=== PATIENT | female | born 2000 | race Caucasian/White ===

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

== ENCOUNTER 2022-06-23 13:18 | Inpatient (IN) | payer OTHER ==
[2022-06-23] MEDS ORDERED: Nubain 10 MG/ML IV PRN (13:46)
[2022-06-23] MEDS ORDERED: STADOL 2 MG IV PRN (13:46)
[2022-06-23] MEDS ORDERED: Zofran 4 MG/2 ML VIAL IV PRN (13:46)
[2022-06-23] MEDS ORDERED: XYLOCAINE 1% HCL 20 ML MDV IJ PRN (13:46)
[2022-06-23] MEDS ORDERED: PITOCIN 30 UNITS/ LR 500 ML 30 UNITS/500 ML PLAST..BAG IV SCH (14:00)
[2022-06-23] MEDS ORDERED: Lactated Ringers 1,000 ML IV SCH (14:00)
[2022-06-23 14:11] LABS: Absolute Neutrophil Ct (ANC) 5.23 x10^3/uL (1.4-6.9); Basophil (Absolute #) 0.04 x10^3/uL (0-0.4); Eosinophil % 0.6 % (0.00-5.0); Eosinophil (Absolute #) 0.05 x10^3/uL (0-0.5); Hematocrit 31.6 % (35-47); Lymphocyte (Absolute #) 1.57 x10^3/uL (1.0-4.6); Lymphocytes % 20.2 % (24.0-44.0); Mean Cell Volume 87.1 fL (78-100); Mean Corpuscular Hemoglobin 27.5 pg (26-32); Mean Corpuscular Hgb Concent. 31.6 g/dL (32-36); Mean Platelet Volume 11.3 fL (7.5-11.0); Monocyte (Absolute #) 0.87 x10^3/uL (0.0-1.3); Monocytes % 11.2 % (0.0-12.0); Neutrophil % 67.1 % (36.0-66.0); Platelet Count 190 x10^3/uL (150-450); Red Blood Count 3.63 x10^6/uL (4.1-5.4); Red Cell Distribution Width 13.5 % (11.5-14.0); White Blood Count 7.8 x10^3/uL (4.0-10.5)
[2022-06-23 14:25] LABS: Amphetamine,Urine NEGATIVE (NEGATIVE); Barbiturate,Urine NEGATIVE (NEGATIVE); Benzodiazepine,Urine NEGATIVE (NEGATIVE); Cocaine,Urine NEGATIVE (NEGATIVE); Methadone,Urine NEGATIVE (NEGATIVE); Opiate,Urine NEGATIVE (NEGATIVE); PCP,Urine NEGATIVE (NEGATIVE); THC,Urine POSITIVE (NEGATIVE)
[2022-06-23] MEDS ORDERED: Lactated Ringers 1,000 ML IV ONE (14:32)
[2022-06-23] MEDS ORDERED: Ephedrine Sulfate 50 MG/ML IV PRN (14:32)
[2022-06-23] MEDS ORDERED: FENTANYL 2 MCG-BUPIV 0.125%-NS 250 ML Epidur 250 ML EPIDURAL SCH (14:45)
[2022-06-23 14:50] LABS: ABO TYPING O; Antibody Screen NEGATIVE (NEGATIVE); RH TYPING POSITIVE
[2022-06-23 15:42] LABS: Appearance Cloudy (Clear); Bacteria Rare /HPF (None Seen); Bilirubin Negative (Negative); Blood Negative (Negative); Epithelial Cells Many /HPF (None Seen); Glucose, Urine Negative (Negative); Hyaline Casts 0-2 /LPF (0-2); Ketones Negative (Negative); Leukocyte Esterase Large (Negative); Nitrite Negative (Negative); Protein,Urine Dip Trace (Negative); RBC 0-2 /HPF (0-5); Specific Gravity 1.015 (1.005-1.030)
[2022-06-23 15:47] LABS: ADD URINE CULTURE? YES (NO)
[2022-06-23] MEDS ORDERED: Dulcolax 10 MG SUPP PR PRN (18:26)
[2022-06-23] MEDS ORDERED: LANSINOH 40 GM TOP PRN (18:26)
[2022-06-23] MEDS ORDERED: Anucort-HC SUPPOSITORY PR PRN (18:26)
[2022-06-23] MEDS ORDERED: Dermoplast Spray TP PRN (18:26)
[2022-06-23] MEDS ORDERED: TUCKS TP PRN (18:26)
[2022-06-23] MEDS ORDERED: CORTISONE 1% CREAM TP PRN (18:26)
[2022-06-23] MEDS ORDERED: Ambien 10 MG PO PRN (18:26)
[2022-06-23] MEDS ORDERED: Mylicon 80MG PO PRN (18:26)
[2022-06-23] MEDS: Docusate Sodium 100 MG PO SCH (20:57)
[2022-06-24] MEDS: TYLENOL EXTRA STRENGTH 500 MG PO PRN ×5 (02:55→22:51)
[2022-06-24 05:51] LABS: Absolute Neutrophil Ct (ANC) 7.01 x10^3/uL (1.4-6.9); Basophil (Absolute #) 0.06 x10^3/uL (0-0.4); Eosinophil % 1.2 % (0.00-5.0); Eosinophil (Absolute #) 0.14 x10^3/uL (0-0.5); Hematocrit 30.7 % (35-47); Hemoglobin 9.8 g/dL (12.0-16.0); Lymphocyte (Absolute #) 2.87 x10^3/uL (1.0-4.6); Lymphocytes % 25.3 % (24.0-44.0); Mean Cell Volume 86.7 fL (78-100); Mean Corpuscular Hemoglobin 27.7 pg (26-32); Mean Corpuscular Hgb Concent. 31.9 g/dL (32-36); Monocyte (Absolute #) 1.23 x10^3/uL (0.0-1.3); Monocytes % 10.9 % (0.0-12.0); Neutrophil % 61.9 % (36.0-66.0); Platelet Count 201 x10^3/uL (150-450); Red Blood Count 3.54 x10^6/uL (4.1-5.4); Red Cell Distribution Width 13.8 % (11.5-14.0); White Blood Count 11.3 x10^3/uL (4.0-10.5)
[2022-06-24] MEDS ORDERED: Adacel Vial IM ONE (09:00)
--- NOTE | 2022-06-24 09:14 | PCM.NOTE ---
Date and Time: 06/24/22911 Subjective Assessment: ppd 1 sp pt resting in bed and doing well ambulating and tolerating diet. vss afebrile abd; soft uterus; firm lochia; mild hgb; 9.8 a/p sp ppd 1 stable anticipate discharge home tomorrow OBJECTIVE DATA Vital Signs: Vital Signs - 24 hr Temp Pulse Resp BP BP Pulse Ox 06/24/22 03:34 98.5 F 55 L 18 98/54 06/24/22 00:00 98.7 F 66 18 100/57 06/23/22 20:00 97.9 F 72 20 100/59 100 06/23/22 19:30 111 H 18 122/76 100 06/23/22 19:00 60 16 102/57 100 06/23/22 18:30 57 L 16 106/65 100 06/23/22 18:20 74 18 107/64 100 06/23/22 17:58 98 F 76 18 100/59 100 06/23/22 17:30 66 20 99/61 100 06/23/22 17:00 66 20 101/54 100 06/23/22 16:00 98 F 71 29 H 102/71 06/23/22 15:01 98 F 80 29 H 109/74 06/23/22 14:00 98 F 66 20 109/74 100 Pain Assessment - Last Documented Pain Intensity 5 Pain Scale Used 0-10 Pain Scale Intake and Output: Intake & Output 06/21/22 06/22/22 06/23/22 06/24/22 11:59 11:59 11:59 11:59 Intake Total 3000 Balance 3000 Weight 55.792 kg Lab Results: Lab Results-Last 24 Hours 06/23/22 06/23/22 06/23/22 Range/Units 12:30 13:46 14:03 WBC 7.8 (4.0-10.5) x10^3/uL RBC 3.63 L (4.1-5.4) x10^6/uL Hgb 10.0 L (12.0-16.0) g/dL Hct 31.6 L (35-47) % MCV 87.1 (78-100) fL MCH 27.5 (26-32) pg MCHC 31.6 L (32-36) g/dL RDW 13.5 (11.5-14.0) % Plt Count 190 (150-450) x10^3/uL MPV 11.3 H (7.5-11.0) fL Gran % 67.1 H (36.0-66.0) % Immature Gran % (Auto) 0.4 (0.00-0.4) % Nucleat RBC Rel Count 0.0 (0.00-0.1) % Eos # (Auto) 0.05 (0-0.5) x10^3/uL Immature Gran # (Auto) 0.03 (0.00-0.03) x10^3u/L Absolute Lymphs (auto) 1.57 (1.0-4.6) x10^3/uL Absolute Monos (auto) 0.87 (0.0-1.3) x10^3/uL Absolute Nucleated RBC 0.00 (0.00-0.01) x10^3u/L Lymphocytes % 20.2 L (24.0-44.0) % Monocytes % 11.2 (0.0-12.0) % Eosinophils % 0.6 (0.00-5.0) % Basophils % 0.5 (0.0-0.4) % Absolute Granulocytes 5.23 (1.4-6.9) x10^3/uL Basophils # 0.04 (0-0.4) x10^3/uL Urine Color Yellow (Yellow) Urine Appearance Cloudy A (Clear) Urine pH 8.0 (4.6-8.0) Ur Specific [place] 1.015 (1.005-1.030) Urine Protein Trace A (Negative) Urine Glucose (UA) Negative (Negative) mg/dL Urine Ketones Negative (Negative) Urine Blood Negative (Negative) Urine Nitrite Negative (Negative) Urine Bilirubin Negative (Negative) Urine Urobilinogen 1.0 A (0.2) mg/dL Ur Leukocyte Esterase Large A (Negative) U Hyaline Cast (Auto) 0-2 (0-2) /LPF Urine Microscopic RBC 0-2 (0-5) /HPF Urine Microscopic WBC 6-10 A (0-5) /HPF Ur Epithelial Cells Many A (None Seen) /HPF Urine Bacteria Rare A (None Seen) /HPF Urine Culture Reflexed YES (NO) Urine Opiates Level NEGATIVE (NEGATIVE) Ur Methadone NEGATIVE (NEGATIVE) Urine Barbiturates NEGATIVE (NEGATIVE) Ur Phencyclidine (PCP) NEGATIVE (NEGATIVE) Urine Amphetamine NEGATIVE (NEGATIVE) U Benzodiazepine Level NEGATIVE (NEGATIVE) Urine Cocaine NEGATIVE (NEGATIVE) Urine Marijuana (THC) POSITIVE (NEGATIVE) ABO Group Rh Factor Antibody Screen (NEGATIVE) 06/23/22 06/24/22 Range/Units 14:03 04:10 WBC 11.3 H (4.0-10.5) x10^3/uL RBC 3.54 L (4.1-5.4) x10^6/uL Hgb 9.8 L (12.0-16.0) g/dL Hct 30.7 L (35-47) % MCV 86.7 (78-100) fL MCH 27.7 (26-32) pg MCHC 31.9 L (32-36) g/dL RDW 13.8 (11.5-14.0) % Plt Count 201 (150-450) x10^3/uL MPV 12.0 H (7.5-11.0) fL Gran % 61.9 (36.0-66.0) % Immature Gran % (Auto) 0.2 (0.00-0.4) % Nucleat RBC Rel Count 0.0 (0.00-0.1) % Eos # (Auto) 0.14 (0-0.5) x10^3/uL Immature Gran # (Auto) 0.02 (0.00-0.03) x10^3u/L Absolute Lymphs (auto) 2.87 (1.0-4.6) x10^3/uL Absolute Monos (auto) 1.23 (0.0-1.3) x10^3/uL Absolute Nucleated RBC 0.00 (0.00-0.01) x10^3u/L Lymphocytes % 25.3 (24.0-44.0) % Monocytes % 10.9 (0.0-12.0) % Eosinophils % 1.2 (0.00-5.0) % Basophils % 0.5 (0.0-0.4) % Absolute Granulocytes 7.01 H (1.4-6.9) x10^3/uL Basophils # 0.06 (0-0.4) x10^3/uL Urine Color (Yellow) Urine Appearance (Clear) Urine pH (4.6-8.0) Ur Specific [place] (1.005-1.030) Urine Protein (Negative) Urine Glucose (UA) (Negative) mg/dL Urine Ketones (Negative) Urine Blood (Negative) Urine Nitrite (Negative) Urine Bilirubin (Negative) Urine Urobilinogen (0.2) mg/dL Ur Leukocyte Esterase (Negative) U Hyaline Cast (Auto) (0-2) /LPF Urine Microscopic RBC (0-5) /HPF Urine Microscopic WBC (0-5) /HPF Ur Epithelial Cells (None Seen) /HPF Urine Bacteria (None Seen) /HPF Urine Culture Reflexed (NO) Urine Opiates Level (NEGATIVE) Ur Methadone (NEGATIVE) Urine Barbiturates (NEGATIVE) Ur Phencyclidine (PCP) (NEGATIVE) Urine Amphetamine (NEGATIVE) U Benzodiazepine Level (NEGATIVE) Urine Cocaine (NEGATIVE) Urine Marijuana (THC) (NEGATIVE) ABO Group O Rh Factor POSITIVE Antibody Screen NEGATIVE (NEGATIVE) Assessment/Plan (1) Vaginal delivery Current Visit: No Status: Acute Code(s): O80 - ENCOUNTER FOR FULL-TERM UNCOMPLICATED DELIVERY
--- NOTE | 2022-06-24 09:17 | PCM.DS ---
Discharge Summary Date of Admission: 06/23/22 14:51 Admitting Physician: ELSIE JACKSON Consults: Consults on Case 06/23/22 14:33 Notify Anesthesia Provider PRN 06/24/22 01:00 Navigation ONCE Primary Care Provider: ELSIE JACKSON Allergies Allergies No Known Drug Allergies Allergy (Verified 12/19/20 18:43) Hospital Summary - Hospital Course Hospital Course: pt was admitted on june 23 for being in labor and was admitted when she was 4 cm dilated. pt progressed to delivery and delivered live baby girl without complication. during period did well able to ambulate and tolerate diet. had stable hgb at 9.8. pt at this time stable for discharge on jun 25 and was advised to fu with her provider in 4-6 wks. all questions answered to her satisfaction. - Vitals & Intake/Output Vital Signs: Vital Signs Temperature 98.5 F 06/24/22 03:34 Pulse Rate 55 L 06/24/22 03:34 Respiratory Rate 18 06/24/22 03:34 Blood Pressure 98/54 06/24/22 03:34 O2 Sat by Pulse Oximetry 100 06/23/22 20:00 Intake & Output: Intake & Output 06/21/22 06/22/22 06/23/22 06/24/22 11:59 11:59 11:59 11:59 Intake Total 3000 Balance 3000 Weight 55.792 kg - Lab Result Diagrams: 06/24/22 04:10 Lab Results-Last 24 Hrs: Lab Results-Last 24 Hours 06/23/22 06/23/22 06/23/22 Range/Units 12:30 13:46 14:03 WBC 7.8 (4.0-10.5) x10^3/uL RBC 3.63 L (4.1-5.4) x10^6/uL Hgb 10.0 L (12.0-16.0) g/dL Hct 31.6 L (35-47) % MCV 87.1 (78-100) fL MCH 27.5 (26-32) pg MCHC 31.6 L (32-36) g/dL RDW 13.5 (11.5-14.0) % Plt Count 190 (150-450) x10^3/uL MPV 11.3 H (7.5-11.0) fL Gran % 67.1 H (36.0-66.0) % Immature Gran % (Auto) 0.4 (0.00-0.4) % Nucleat RBC Rel Count 0.0 (0.00-0.1) % Eos # (Auto) 0.05 (0-0.5) x10^3/uL Immature Gran # (Auto) 0.03 (0.00-0.03) x10^3u/L Absolute Lymphs (auto) 1.57 (1.0-4.6) x10^3/uL Absolute Monos (auto) 0.87 (0.0-1.3) x10^3/uL Absolute Nucleated RBC 0.00 (0.00-0.01) x10^3u/L Lymphocytes % 20.2 L (24.0-44.0) % Monocytes % 11.2 (0.0-12.0) % Eosinophils % 0.6 (0.00-5.0) % Basophils % 0.5 (0.0-0.4) % Absolute Granulocytes 5.23 (1.4-6.9) x10^3/uL Basophils # 0.04 (0-0.4) x10^3/uL Urine Color Yellow (Yellow) Urine Appearance Cloudy A (Clear) Urine pH 8.0 (4.6-8.0) Ur Specific [place] 1.015 (1.005-1.030) Urine Protein Trace A (Negative) Urine Glucose (UA) Negative (Negative) mg/dL Urine Ketones Negative (Negative) Urine Blood Negative (Negative) Urine Nitrite Negative (Negative) Urine Bilirubin Negative (Negative) Urine Urobilinogen 1.0 A (0.2) mg/dL Ur Leukocyte Esterase Large A (Negative) U Hyaline Cast (Auto) 0-2 (0-2) /LPF Urine Microscopic RBC 0-2 (0-5) /HPF Urine Microscopic WBC 6-10 A (0-5) /HPF Ur Epithelial Cells Many A (None Seen) /HPF Urine Bacteria Rare A (None Seen) /HPF Urine Culture Reflexed YES (NO) Urine Opiates Level NEGATIVE (NEGATIVE) Ur Methadone NEGATIVE (NEGATIVE) Urine Barbiturates NEGATIVE (NEGATIVE) Ur Phencyclidine (PCP) NEGATIVE (NEGATIVE) Urine Amphetamine NEGATIVE (NEGATIVE) U Benzodiazepine Level NEGATIVE (NEGATIVE) Urine Cocaine NEGATIVE (NEGATIVE) Urine Marijuana (THC) POSITIVE (NEGATIVE) ABO Group Rh Factor Antibody Screen (NEGATIVE) 06/23/22 06/24/22 Range/Units 14:03 04:10 WBC 11.3 H (4.0-10.5) x10^3/uL RBC 3.54 L (4.1-5.4) x10^6/uL Hgb 9.8 L (12.0-16.0) g/dL Hct 30.7 L (35-47) % MCV 86.7 (78-100) fL MCH 27.7 (26-32) pg MCHC 31.9 L (32-36) g/dL RDW 13.8 (11.5-14.0) % Plt Count 201 (150-450) x10^3/uL MPV 12.0 H (7.5-11.0) fL Gran % 61.9 (36.0-66.0) % Immature Gran % (Auto) 0.2 (0.00-0.4) % Nucleat RBC Rel Count 0.0 (0.00-0.1) % Eos # (Auto) 0.14 (0-0.5) x10^3/uL Immature Gran # (Auto) 0.02 (0.00-0.03) x10^3u/L Absolute Lymphs (auto) 2.87 (1.0-4.6) x10^3/uL Absolute Monos (auto) 1.23 (0.0-1.3) x10^3/uL Absolute Nucleated RBC 0.00 (0.00-0.01) x10^3u/L Lymphocytes % 25.3 (24.0-44.0) % Monocytes % 10.9 (0.0-12.0) % Eosinophils % 1.2 (0.00-5.0) % Basophils % 0.5 (0.0-0.4) % Absolute Granulocytes 7.01 H (1.4-6.9) x10^3/uL Basophils # 0.06 (0-0.4) x10^3/uL Urine Color (Yellow) Urine Appearance (Clear) Urine pH (4.6-8.0) Ur Specific [place] (1.005-1.030) Urine Protein (Negative) Urine Glucose (UA) (Negative) mg/dL Urine Ketones (Negative) Urine Blood (Negative) Urine Nitrite (Negative) Urine Bilirubin (Negative) Urine Urobilinogen (0.2) mg/dL Ur Leukocyte Esterase (Negative) U Hyaline Cast (Auto) (0-2) /LPF Urine Microscopic RBC (0-5) /HPF Urine Microscopic WBC (0-5) /HPF Ur Epithelial Cells (None Seen) /HPF Urine Bacteria (None Seen) /HPF Urine Culture Reflexed (NO) Urine Opiates Level (NEGATIVE) Ur Methadone (NEGATIVE) Urine Barbiturates (NEGATIVE) Ur Phencyclidine (PCP) (NEGATIVE) Urine Amphetamine (NEGATIVE) U Benzodiazepine Level (NEGATIVE) Urine Cocaine (NEGATIVE) Urine Marijuana (THC) (NEGATIVE) ABO Group O Rh Factor POSITIVE Antibody Screen NEGATIVE (NEGATIVE) Final Diagnosis/Problem List - Final Discharge Diagnosis/Problem (1) Vaginal delivery Current Visit: No Status: Acute Code(s): O80 - ENCOUNTER FOR FULL-TERM UNCOMPLICATED DELIVERY - Discharge Disposition: Home, Self-Care Condition: Stable Prescriptions: No Action Ferrous Sulfate [Iron] 325 mg PO HS Follow up with: ELSIE JACKSON MD [Primary Care Provider] - Call for Appointment (should fu with provider in 4-6 wks for care )
[2022-06-24] MEDS: Docusate Sodium 100 MG PO SCH ×2 (09:33→22:19)
[2022-06-24] MEDS ORDERED: FERREX 150 PO SCH (10:00)
[2022-06-24 12:44] LABS: HBsAg Screen Negative (Negative)
[2022-06-25] MEDS: TYLENOL EXTRA STRENGTH 500 MG PO PRN ×3 (04:22→13:29)
[2022-06-25 11:08] VITALS: BP 104/80; PULSE 76; O2SAT 100
== END 2022-06-25 19:39 | disposition home or self-care (01) | DRG 807 ==
LOC: OB 13:18 → OBSVTOIN 14:51
PROVIDERS: ADMIT Obstetrics & Gynecology; ATTEND Obstetrics & Gynecology
PROC: 10E0XZZ Delivery of Products of Conception, External Approach (ICD-10-PCS; principal; 2022-06-23)
DX: O80 Encounter for full-term uncomplicated delivery (principal); Z37.0 Single live birth; Z3A.38 38 weeks gestation of pregnancy; Z20.828 Contact with and (suspected) exposure to other viral communicable diseases
CPT/HCPCS: 36415; 80307; 81001; 85025; 86850; 86900; 86901; 87086; 87340; J2590; A9270-GY

== ENCOUNTER 2023-06-18 14:37 | Emergency (ER) | payer OTHER ==
[2023-06-18] MEDS ORDERED: TYLENOL 325 MG PO STA (15:06)
--- NOTE | 2023-06-18 15:09 | ERPHSYRPT ---
- History of Present Illness Time Seen by Provider: 06/18/23 14:53 Source: patient Exam Limitations: no limitations Physician History: 23-year-old female 6 to 8 weeks gestation per LMP presented in the ER with chief complaint of right foot anterolateral pain since yesterday morning without any fall or known trauma. She has taken Tylenol with some relief yesterday but today her pain is getting worse and is having difficulty weightbearing. She has been using crutches. No obvious swelling of the foot. Pain is exacerbated with movements of the toes and ankle. No pain in the ankle actually. No numbness tingling in the toes. Allergies/Adverse Reactions: No Known Drug Allergies Allergy (Verified 06/18/23 15:09) Home Medications: No Reportable Medications [No Reported Medications] 06/18/23 [History] Travel Risk - Vaccine Status Have you recieved a Covid-19 vaccination: No - Review of Systems Constitutional: No Symptoms Ears, Nose, & Throat: No Symptoms Respiratory: No Symptoms Cardiac: No Symptoms Abdominal/Gastrointestinal: No Symptoms Genitourinary Symptoms: Musculoskeletal: Joint Pain Skin: No Symptoms Neurological: No Symptoms Endocrine: No Symptoms Hematologic/Lymphatic: No Symptoms - Past Medical History Pertinent Past Medical History: Yes Neurological History: Migraines ENT History: No Pertinent History Cardiac History: No Pertinent History Respiratory History: No Pertinent History Endocrine Medical History: No Pertinent History Musculoskeletal History: No Pertinent History GI Medical History: Other History: No Pertinent History Psycho-Social History: Anxiety, Depression, Eating Disorders Female Reproductive Disorders: Other Other Medical History: Stomach lining is weak (Surgery/biopsy 07/2019), Ovarian cyst (ruptured 2019) - Past Surgical History Past Surgical History: Yes Neuro Surgical History: No Pertinent History Cardiac: No Pertinent History Respiratory: No Pertinent History Gastrointestinal: Other Genitourinary: No Pertinent History Musculoskeletal: No Pertinent History Female Surgical History: No Pertinent History Other Surgical History: biopsy/Scope of stomach lining - Social History Smoking Status: Current every day smoker How long have you smoked: 4 yrs Exposure to second hand smoke: Yes Drug Use: marijuana - Nursing Vital Signs Nursing Vital Signs: Initial Vital Signs Temperature 98.4 F 06/18/23 15:15 Pulse Rate 81 06/18/23 15:15 Respiratory Rate 16 06/18/23 15:15 Blood Pressure 100/57 06/18/23 15:15 O2 Sat by Pulse Oximetry 100 06/18/23 15:15 Pain Scale Pain Intensity 10 - Physical Exam General Appearance: no apparent distress, alert Eyes, Ears, Nose, Throat Exam: normal ENT inspection Neck Exam: normal inspection, full range of motion Cardiovascular/Respiratory Exam: normal breath sounds, regular rate/rhythm Back Exam: normal inspection, normal range of motion Legs Exam: bilateral leg: non-tender, normal inspection, normal range of motion, no evidence of injury Ankle Exam: bilateral ankle: non-tender, normal inspection, normal range of motion, no evidence of injury Foot Exam: right foot: bone tenderness ( anterolateral foot), limited range of motion, pain, soft tissue tenderness, swelling, left foot: non-tender, normal inspection, normal range of motion, no evidence of injury Neuro/Tendon Exam: normal sensation, normal motor functions Mental Status Exam: alert, oriented x 3, cooperative Skin Exam: normal color SpO2 Interpretation: normal SpO2: 96 O2 Delivery: Room Air Ordered Tests: Active Orders 24 hr Category Date Time Status FOOT (MINIMUM 3 VIEWS) Stat Exams 06/18/23 15:06 Completed Medication Summary Discontinued Medications Generic Name Dose Route Start Last Admin Trade Name Caitlin PRN Reason Stop Dose Admin Acetaminophen 975 mg 06/18/23 15:06 06/18/23 15:16 Acetaminophen 325 Mg Tablet PO 06/18/23 15:07 975 mg STAT STA Administration Acetaminophen Confirm 06/18/23 15:11 Acetaminophen 325 Mg Tablet Administered 06/18/23 15:12 Dose 975 mg .ROUTE .STK-MED ONE Acetaminophen Confirm 06/18/23 15:15 Acetaminophen 325 Mg Tablet Administered 06/18/23 15:16 Dose 975 mg .ROUTE .STK-MED ONE - Progress Progress Note: 06/18/23 16:06 23-year-old female 6 to 8 weeks gestation per LMP presented in the ER with chief complaint of right foot anterolateral pain since yesterday morning without any fall or known trauma. She has taken Tylenol with some relief yesterday but today her pain is getting worse and is having difficulty weightbearing. She has been using crutches. No obvious swelling of the foot. Pain is exacerbated with movements of the toes and ankle. No pain in the ankle actually. No numbness tingling in the toes. She is given Tylenol for symptomatic relief. She does not want any stronger pain medications. X-rays are negative for fracture dislocation. No signs of gout or cellulitis. She is placed in a long boot, recommended weightbearing as tolerated and outpatient podiatry follow-up. Discussed signs symptoms of worsening needing return to ER which she seems understanding. Counseled pt/family regarding: diagnosis, need for follow-up, rad results Medical Desision Making - Diagnostic Testing Radiological Interpretation: Reviewed by me - Departure Departure Disposition: Home Clinical Impression: Sprain of foot, right Condition: Stable Critical Care Time: No Referrals: ELSIE JACKSON MD [Primary Care Provider] - Follow up with PCP 2 days YOSI DUMONT DPM [ACTIVE STAFF] - Follow up/PCP as directed (1-2 days for reevaluation) Instructions: Foot Sprain (DC) Additional Instructions: Intermittent ice application. Tylenol as needed for pain. Weightbearing as tolerated. Follow-up with foot and ankle/podiatry for reevaluation. Return to ER for any worsening. Forms: Ortho Referral
[2023-06-18] MEDS ORDERED: TYLENOL 325 MG ONE ×2 (15:11→15:15)
[2023-06-18 15:16] VITALS: RESP 16; TEMP 98.4
--- NOTE | 2023-06-18 15:31 | XRAY ---
Indication: Pain. Comparison: None 3 nonweightbearing views right foot demonstrates tiny cuboid accessory ossicle. No other bony, articular, or soft tissue abnormalities.
[2023-06-18 16:45] VITALS: BP 102/68; PULSE 68; O2SAT 100
== END 2023-06-18 17:07 | disposition home or self-care (01) ==
LOC: ED 14:37
DX: S93.601A Unspecified sprain of right foot, initial encounter (principal); Z33.1 Pregnant state, incidental; Z28.310 Unvaccinated for COVID-19; Z72.0 Tobacco use
CPT/HCPCS: 73630; 99283; A9270-GY

== ENCOUNTER 2023-11-23 16:44 | Observation (INO) | payer OTHER ==
[2023-11-23 18:01] VITALS: O2SAT 100
[2023-11-23 18:04] LABS: AMNISURE TEST RESULTS NEGATIVE (NEGATIVE)
[2023-11-23 18:16] LABS: ADD URINE CULTURE? NO (NO); Appearance Clear (Clear); Bacteria None Seen /HPF (None Seen); Bilirubin Negative (Negative); Blood Negative (Negative); Epithelial Cells Few /HPF (None Seen); Glucose, Urine Negative (Negative); Hyaline Casts NONE SEEN /LPF (0-2); Ketones 40 (Negative); Leukocyte Esterase Small (Negative); Nitrite Negative (Negative); Protein,Urine Dip Negative (Negative); RBC 0-2 /HPF (0-5)
[2023-11-23] MEDS ORDERED: Lactated Ringers 1,000 ML IV ONE ×3 (18:34→21:00)
[2023-11-23] MEDS ORDERED: BRETHINE 1 MG/ML ONE (18:35)
[2023-11-23] MEDS: BRETHINE 1 MG/ML SQ ONE ×2 (18:41→20:09)
[2023-11-23] MEDS: Lactated Ringers 1,000 ML IV ONE ×2 (18:42→20:18)
[2023-11-23] MEDS: Lactated Ringers 1,000 ML IV SCH ×2 (19:59→21:01)
[2023-11-23] MEDS ORDERED: Celestone Soluspan 6MG/ML ONE (20:51)
[2023-11-23] MEDS ORDERED: Magnesium Sulfate 40 Gm/1000 Ml H2O Premix*** 1,000 ML IV ONE (20:53)
[2023-11-23] MEDS: Celestone Soluspan 6MG/ML IM ONE (20:54)
[2023-11-23] MEDS: Magnesium Sulfate 40 Gm/1000 Ml H2O Premix*** 1,000 ML IV SCH (20:56)
[2023-11-23 21:23] VITALS: RESP 18; TEMP 97.2
[2023-11-23 22:51] VITALS: BP 91/52; PULSE 96
[2023-11-23 22:57] LABS: Barbiturate,Urine NEGATIVE (NEGATIVE); Benzodiazepine,Urine NEGATIVE (NEGATIVE); Cocaine,Urine NEGATIVE (NEGATIVE); Methadone,Urine NEGATIVE (NEGATIVE); Opiate,Urine NEGATIVE (NEGATIVE); PCP,Urine NEGATIVE (NEGATIVE); THC,Urine POSITIVE (NEGATIVE)
== END 2023-11-23 22:27 | disposition home or self-care (01) ==
LOC: OB 16:44
PROVIDERS: ADMIT Family Medicine; ATTEND Family Medicine
DX: Z34.83 Encounter for supervision of other normal pregnancy, third trimester (principal); Z3A.33 33 weeks gestation of pregnancy; Z59.811 Housing instability, housed, with risk of homelessness
CPT/HCPCS: 80307; 81001; 84112; 96372; G0378; G0379; J0702

== ENCOUNTER 2023-12-15 14:12 | Inpatient (IN) | payer OTHER ==
[2023-12-15 15:16] LABS: Appearance Cloudy (Clear); Bacteria Moderate /HPF (None Seen); Bilirubin Negative (Negative); Blood Negative (Negative); Epithelial Cells Many /HPF (None Seen); Glucose, Urine Negative (Negative); Hyaline Casts NONE SEEN /LPF (0-2); Ketones Negative (Negative); Leukocyte Esterase Moderate (Negative); Nitrite Negative (Negative); Protein,Urine Dip Trace (Negative); RBC 0-2 /HPF (0-5)
[2023-12-15 15:18] LABS: ADD URINE CULTURE? YES (NO)
[2023-12-15 15:21] LABS: Amphetamine,Urine NEGATIVE (NEGATIVE); Barbiturate,Urine NEGATIVE (NEGATIVE); Benzodiazepine,Urine NEGATIVE (NEGATIVE); Cocaine,Urine NEGATIVE (NEGATIVE); Methadone,Urine NEGATIVE (NEGATIVE); Opiate,Urine NEGATIVE (NEGATIVE); PCP,Urine NEGATIVE (NEGATIVE); THC,Urine NEGATIVE (NEGATIVE)
[2023-12-15] MEDS: Lactated Ringers 1,000 ML IV SCH ×2 (15:31→21:01)
[2023-12-15] MEDS: ROCEPHIN 1 GM / 100 ML NaCl 1 GM/100 ML IVPB IV SCH (17:23)
[2023-12-15] MEDS: BRETHINE 1 MG/ML SQ ONE (19:12)
[2023-12-15] MEDS: Lactated Ringers 1,000 ML IV ONE (20:30)
[2023-12-15] MEDS ORDERED: XYLOCAINE 1% HCL 20 ML MDV IJ PRN (20:45)
[2023-12-15] MEDS ORDERED: FENTANYL 2 MCG-BUPIV 0.125%-NS 250 ML Epidur 250 ML EPIDURAL ONE (20:56)
[2023-12-15] MEDS ORDERED: OMNIPEN 2 GM ONE (20:56)
[2023-12-15] MEDS ORDERED: Sodium Chloride 100ML MINI-BAG PLUS 100 ML IV ONE (20:59)
[2023-12-15] MEDS: OMNIPEN 2 GM*** 2 G in Sodium Chloride 100ML MINI-BAG PLUS 100 ML IV ONE (21:01)
[2023-12-15 21:11] LABS: Absolute Neutrophil Ct (ANC) 5.99 x10^3/uL (1.56-6.13); BASOPHIL % 0.4 % (0.1-1.2); Basophil (Absolute #) 0.03 x10^3/uL (0.01-0.08); Eosinophil % 0.4 % (0.7-5.8); Eosinophil (Absolute #) 0.03 x10^3/uL (0.04-0.36); Hematocrit 27.7 % (34.1-44.9); Hemoglobin 8.8 g/dL (11.2-15.7); IMMATURE GRAN # 0.03 x10^3u/L (0.001-0.031); IMMATURE GRAN % 0.4 % (0.001-0.429); Lymphocyte (Absolute #) 1.59 x10^3/uL (1.18-3.74); Lymphocytes % 19.4 % (19.3-51.7); Mean Corpuscular Hgb Concent. 31.8 g/dL (32.2-35.5); Mean Platelet Volume 11.4 fL (9.4-12.3); Monocyte (Absolute #) 0.52 x10^3/uL (0.24-0.86); Monocytes % 6.3 % (4.7-12.5); Neutrophil % 73.1 % (34.0-71.1); Platelet Count 141 x10^3/uL (182-369); Red Blood Count 3.26 x10^6/uL (3.93-5.22); Red Cell Distribution Width 13.9 % (11.7-14.4); White Blood Count 8.2 x10^3/uL (3.98-10.04)
[2023-12-15] MEDS ORDERED: Zofran 4 MG/2 ML VIAL ONE (21:44)
[2023-12-15] MEDS: FENTANYL 2 MCG-BUPIV 0.125%-NS 250 ML Epidur 250 ML EPIDURAL SCH (21:45)
[2023-12-15] MEDS: Zofran 4 MG/2 ML VIAL IV PRN (21:45)
[2023-12-15 22:10] LABS: ABO TYPING O; Antibody Screen NEGATIVE (NEGATIVE); RH TYPING POSITIVE
[2023-12-15] MEDS ORDERED: Zofran 4 MG/2 ML VIAL IV PRN (23:15)
[2023-12-16 00:33] LABS: Creatinine, Urine Random 50.8 mg/dl; Protein Creatinine Ratio, Ran. 0.31 mg/mg (0.0-0.15)
[2023-12-16] MEDS ORDERED: OMNIPEN 1 GM ONE ×2 (00:49→04:45)
[2023-12-16] MEDS ORDERED: Sodium Chloride 100ML MINI-BAG PLUS 100 ML IV ONE ×2 (00:50→04:45)
[2023-12-16] MEDS: OMNIPEN 1 GM*** 1 GM in Sodium Chloride 100ML MINI-BAG PLUS 100 ML IV SCH ×2 (00:51→08:31)
[2023-12-16] MEDS ORDERED: PITOCIN 30 UNITS/ LR 500 ML 500 ML IV ONE (02:32)
[2023-12-16] MEDS: PITOCIN 30 UNITS/ LR 500 ML 30 UNITS/500 ML PLAST..BAG IV SCH ×2 (03:51→07:13)
[2023-12-16] MEDS: Ephedrine Sulfate 50 MG/ML IV PRN (04:42)
[2023-12-16] MEDS ORDERED: OMNIPEN 1 GM*** 1 GM in Sodium Chloride 100ML MINI-BAG PLUS 100 ML IV SCH (09:00)
[2023-12-16] MEDS: LANSINOH 40 GM TOP PRN (14:06)
[2023-12-16] MEDS: TUCKS TP PRN (14:06)
[2023-12-16] MEDS: Dermoplast Spray TP PRN (14:06)
[2023-12-16] MEDS: TYLENOL EXTRA STRENGTH 500 MG PO PRN (15:25)
[2023-12-16 15:29] LABS: Appearance Clear (Clear); Bacteria None Seen /HPF (None Seen); Bilirubin Negative (Negative); Blood Moderate (Negative); Epithelial Cells None Seen /HPF (None Seen); Glucose, Urine Negative (Negative); Hyaline Casts NONE SEEN /LPF (0-2); Ketones 15 (Negative); Leukocyte Esterase Negative (Negative); Nitrite Negative (Negative); Ph 8.5 (4.6-8.0); Protein,Urine Dip Negative (Negative); RBC >100 /HPF (0-5)
[2023-12-16 15:30] LABS: ADD URINE CULTURE? ORDERED SEPARATELY (NO)
[2023-12-16] MEDS: ROCEPHIN 1 GM / 100 ML NaCl 1 GM/100 ML IVPB IV SCH (18:46)
[2023-12-16] MEDS: Docusate Sodium 100 MG PO SCH (20:04)
[2023-12-17 06:13] LABS: Absolute Neutrophil Ct (ANC) 4.88 x10^3/uL (1.56-6.13); BASOPHIL % 0.5 % (0.1-1.2); Basophil (Absolute #) 0.04 x10^3/uL (0.01-0.08); Eosinophil % 2.2 % (0.7-5.8); Eosinophil (Absolute #) 0.19 x10^3/uL (0.04-0.36); Hematocrit 25.4 % (34.1-44.9); Hemoglobin 8.3 g/dL (11.2-15.7); IMMATURE GRAN # 0.02 x10^3u/L (0.001-0.031); IMMATURE GRAN % 0.2 % (0.001-0.429); Lymphocyte (Absolute #) 2.56 x10^3/uL (1.18-3.74); Lymphocytes % 29.9 % (19.3-51.7); Mean Cell Volume 84.7 fL (79.4-94.8); Mean Corpuscular Hemoglobin 27.7 pg (25.6-32.2); Mean Corpuscular Hgb Concent. 32.7 g/dL (32.2-35.5); Mean Platelet Volume 11.7 fL (9.4-12.3); Monocyte (Absolute #) 0.87 x10^3/uL (0.24-0.86); Monocytes % 10.2 % (4.7-12.5); Platelet Count 142 x10^3/uL (182-369); Red Cell Distribution Width 14.5 % (11.7-14.4); White Blood Count 8.6 x10^3/uL (3.98-10.04)
[2023-12-17 10:19] LABS: RPR Non Reactive (Non Reactive)
[2023-12-17] MEDS: FERREX 150 PO SCH (11:54)
[2023-12-17] MEDS: Adacel Vial IM ONE (11:54)
[2023-12-17] MEDS: NORCO 5/325 MG PO PRN (13:50)
[2023-12-17] MEDS: Mylicon 80MG PO PRN (15:39)
[2023-12-17] MEDS: ROCEPHIN 1 GM / 100 ML NaCl 1 GM/100 ML IVPB IV SCH (21:34)
[2023-12-18 02:59] VITALS: O2SAT 96
--- NOTE | 2023-12-18 08:36 | PCM.DS ---
Discharge Summary Date of Admission: 12/15/23 21:20 Admitting Physician: ELSIE JACKSON Consults: Consults on Case 12/15/23 21:02 Notify Anesthesia Provider SHAWN 12/17/23 16:42 Navigation ONCE Primary Care Provider: ELSIE JACKSON Allergies Allergies No Known Drug Allergies Allergy (Verified 12/15/23 14:46) Hospital Summary - Hospital Course Hospital Course: patient arrived in spontaneous labor at 36 4/7wks ega, uncomplicated . gbs unknown, received amp. no problems , bottle feeding. - Vitals & Intake/Output Vital Signs: Vital Signs Temperature 97.8 F 12/18/23 02:58 Pulse Rate 63 12/18/23 02:58 Respiratory Rate 15 12/18/23 02:58 Blood Pressure 102/59 12/18/23 02:58 O2 Sat by Pulse Oximetry 96 12/18/23 02:58 Intake & Output: Intake & Output 12/15/23 12/16/23 12/17/23 12/18/23 11:59 11:59 11:59 11:59 Intake Total 4840 1440 Output Total 1650 800 Balance 3190 640 Weight 58.06 kg - Lab Result Diagrams: 12/17/23 06:05 Lab Results-Last 24 Hrs: Lab Results-Last 24 Hours 12/15/23 Range/Units 21:00 RPR Non Reactive (Non Reactive) Micro Results-Entire Visit: Microbiology 12/16/23 15:15 Urine Culture - Final Urine, Indwelling Catheter NO GROWTH 12/15/23 00:17 Urine Culture - Final Urine, Void <10K NORMAL SKIN ADRIEN PROBABLE SKIN CONTAMINANT - Procedures and Test Procedures and Tests throughout Hospitalization: Therapy Orders & Screens 12/16/23 10:08 Standby ROUTINE Comment: Diagnosis: R/O labro Discharge Exam General Appearance: no apparent distress Neurologic Exam: alert, oriented x 3 Respiratory Exam: normal breath sounds, lungs clear, No respiratory distress Cardiovascular Exam: regular rate/rhythm, normal heart sounds Gastrointestinal/Abdomen Exam: soft, No tenderness, No mass Extremity Exam: normal inspection, normal range of motion Skin Exam: normal color, warm, dry Final Diagnosis/Problem List - Final Discharge Diagnosis/Problem (1) Vaginal delivery Current Visit: No Status: Acute Code(s): O80 - ENCOUNTER FOR FULL-TERM UNCOMPLICATED DELIVERY - Discharge Disposition: Home, Self-Care Condition: Stable Prescriptions: Continue Ferrous Sulfate [Ferosul] 325 mg PO DAILY Discontinued Pnv No.95/Ferrous Fum/Folic AC [ Multivitamin Tablet] 1 tab PO DAILY Follow up with: ELSIE JACKSON MD [Primary Care Provider] - 6 weeks
[2023-12-18 09:19] VITALS: BP 91/55; PULSE 58; RESP 18; TEMP 98.4
== END 2023-12-18 14:40 | disposition home or self-care (01) | DRG 807 ==
LOC: OB 14:12 → OBSVTOIN 21:20
PROVIDERS: ADMIT Family Medicine; ATTEND Family Medicine
PROC: 10E0XZZ Delivery of Products of Conception, External Approach (ICD-10-PCS; principal; 2023-12-16)
DX: O80 Encounter for full-term uncomplicated delivery (principal); Z37.0 Single live birth; Z3A.36 36 weeks gestation of pregnancy
CPT/HCPCS: 36415; 80307; 81001; 82570; 84156; 85025; 86592; 86850; 86900; 86901; 87086; 90715; 94799; 96372; J0290; J0696; J2405; J2590; A9270-GY

== ENCOUNTER 2024-06-01 11:34 | Emergency (ER) | payer OTHER ==
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
[2024-06-01 11:58] VITALS: TEMP 98
[2024-06-01] MEDS ORDERED: Zofran 4 MG/2 ML VIAL ONE (12:53)
[2024-06-01] MEDS ORDERED: Hydromorphone 1 mg/ml Injection ONE (12:54)
[2024-06-01] MEDS ORDERED: Sodium Chloride 0.9% 1000 ML 1,000 ML ONE (12:54)
[2024-06-01] MEDS: Sodium Chloride 0.9% 1000 ML 1,000 ML IV STA (12:58)
[2024-06-01] MEDS: Zofran 4 MG/2 ML VIAL IV ONE (13:00)
[2024-06-01] MEDS: Hydromorphone 1 mg/ml Injection IV ONE (13:00)
[2024-06-01 13:01] LABS: Absolute Neutrophil Ct (ANC) 1.67 x10^3/uL (1.56-6.13); BASOPHIL % 1.4 % (0.1-1.2); Basophil (Absolute #) 0.05 x10^3/uL (0.01-0.08); Eosinophil % 4.3 % (0.7-5.8); Eosinophil (Absolute #) 0.16 x10^3/uL (0.04-0.36); Hematocrit 34.8 % (34.1-44.9); Hemoglobin 11.4 g/dL (11.2-15.7); IMMATURE GRAN # 0.01 x10^3u/L (0.001-0.031); IMMATURE GRAN % 0.3 % (0.001-0.429); Lymphocyte (Absolute #) 1.44 x10^3/uL (1.18-3.74); Lymphocytes % 38.9 % (19.3-51.7); Mean Cell Volume 80.6 fL (79.4-94.8); Mean Corpuscular Hemoglobin 26.4 pg (25.6-32.2); Mean Corpuscular Hgb Concent. 32.8 g/dL (32.2-35.5); Mean Platelet Volume 12.3 fL (9.4-12.3); Monocyte (Absolute #) 0.37 x10^3/uL (0.24-0.86); Neutrophil % 45.1 % (34.0-71.1); Platelet Count 162 x10^3/uL (182-369); Red Blood Count 4.32 x10^6/uL (3.93-5.22); Red Cell Distribution Width 15.7 % (11.7-14.4); White Blood Count 3.7 x10^3/uL (3.98-10.04)
[2024-06-01 13:04] VITALS: RESP 16; O2SAT 100
[2024-06-01 13:05] LABS: HCG URINE TEST NEGATIVE (NEGATIVE)
[2024-06-01 13:14] LABS: ALBUMIN 4.6 g/dL (3.5-5.0); ANION GAP 13.3 MEQ/L (5-15); BILIRUBIN,TOTAL 0.6 mg/dL (0.2-1.3); Calcium 9.3 mg/dL (8.4-10.2); Creatinine 1 0.67 mg/dL (0.52-1.04); EST GLOMERULAR FILTRATION RATE 126.7 ML/MIN; Potassium 3.7 mmol/L (3.5-5.1); Total Protein 7.1 g/dL (6.3-8.2)
[2024-06-01 13:27] LABS: Appearance Clear (Clear); Bacteria Few /HPF (None Seen); Bilirubin Negative (Negative); Blood Negative (Negative); Epithelial Cells Many /HPF (None Seen); Glucose, Urine Negative (Negative); Hyaline Casts NONE SEEN /LPF (0-2); Ketones 15 (Negative); Leukocyte Esterase Negative (Negative); Nitrite Negative (Negative); Ph 5.5 (4.6-8.0); Protein,Urine Dip Trace (Negative); RBC 0-2 /HPF (0-5); Specific Gravity >=1.030 (1.005-1.030); Urobilinogen 0.2 mg/dL (0.2)
[2024-06-01 13:45] LABS: INFLUENZA A NEGATIVE (NEGATIVE); INFLUENZA B NEGATIVE (NEGATIVE); RESPIRATORY SYNCTIAL VIRUS NEGATIVE (NEGATIVE); SARS-CoV-2 Xpert Express NEGATIVE (NEGATIVE)
[2024-06-01 14:03] VITALS: BP 99/58; PULSE 48
--- NOTE | 2024-06-01 14:24 | XRAY ---
Indication: Abdomen pain. Nausea and vomiting. Multiple contiguous axial images obtained through the abdomen and pelvis without contrast. Comparison: None Lung bases clear. Heart not enlarged. Noncontrasted stomach and bowel loops appear nonobstructed with normal appendix. Radiopacities in ascending colon presumed ingested medication/bismuth. Mild fecal debris in ascending and transverse colon. No free fluid/air. Remaining liver, gallbladder, pancreas, spleen, adrenal glands, kidneys, ureters, bladder, uterus, and aorta are unremarkable for noncontrast exam. Osseous structures intact. Impression: Normal CT abdomen/pelvis without contrast exam.
== END 2024-06-01 14:44 | disposition home or self-care (01) ==
LOC: ED 11:34
DX: R11.2 Nausea with vomiting, unspecified (principal); R10.9 Unspecified abdominal pain; E86.0 Dehydration
CPT/HCPCS: 0241U; 36415; 74176; 80053; 81001; 81025; 82150; 83690; 85025; 87086; 96360; 96374; 96375; 99284; J1171; J2405

== ENCOUNTER 2025-03-15 00:01 | Observation (INO) | payer OTHER ==
[2025-03-16 00:52] LABS: Amphetamine,Urine NEGATIVE (NEGATIVE); Barbiturate,Urine NEGATIVE (NEGATIVE); Benzodiazepine,Urine NEGATIVE (NEGATIVE); Cocaine,Urine NEGATIVE (NEGATIVE); Methadone,Urine NEGATIVE (NEGATIVE); Opiate,Urine NEGATIVE (NEGATIVE); PCP,Urine NEGATIVE (NEGATIVE); THC,Urine POSITIVE (NEGATIVE)
[2025-03-16] MEDS: TYLENOL 325 MG PO PRN (02:19)
[2025-03-16 04:28] VITALS: TEMP 98.3
[2025-03-16] MEDS: Dextrose 5%-Lr IV Solution 1000 ML 1,000 ML IV SCH (05:09)
[2025-03-16 05:44] LABS: Calcium 8.0 mg/dL (8.4-10.2); Carbon Dioxide 18.0 mmol/L (22-30); Creatinine 1 0.32 mg/dL (0.52-1.04); EST GLOMERULAR FILTRATION RATE 151.4 ML/MIN; Glucose 102.0 mg/dL (74-106); Potassium 3.5 mmol/L (3.5-5.1)
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
[2025-03-16] MEDS: Compazine 10 MG/2 ML IV PRN (11:12)
[2025-03-16 11:51] VITALS: BP 105/58; PULSE 82; RESP 18; O2SAT 100
== END 2025-03-16 11:40 | disposition home or self-care (01) ==
LOC: MED SURG 03-16
PROVIDERS: ADMIT Family Medicine; ATTEND Family Medicine
DX: O21.9 Vomiting of pregnancy, unspecified (principal); Z3A.23 23 weeks gestation of pregnancy; E86.0 Dehydration; Z59.10 Inadequate housing, unspecified

== ENCOUNTER 2025-03-15 19:09 | Emergency (ER) | payer OTHER ==
[2025-03-15 20:10] VITALS: TEMP 97.6
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
[2025-03-15 21:26] LABS: Glucose, Urine Negative (Negative); Protein,Urine Dip 30 (Negative)
[2025-03-15 21:29] LABS: Calcium 9.0 mg/dL (8.4-10.2); Creatinine 1 0.43 mg/dL (0.52-1.04); EST GLOMERULAR FILTRATION RATE 140.9 ML/MIN; Glucose 54.0 mg/dL (74-106); Potassium 3.5 mmol/L (3.5-5.1); SGOT/AST 28.0 U/L (14-36); SGPT/ALT 14.0 U/L (0-35); Total Protein 8.0 g/dL (6.3-8.2)
[2025-03-15 21:40] LABS: RBC 0-2 /HPF (0-5)
[2025-03-15 21:42] LABS: BASOPHIL % 0.3 % (0.1-1.2); Basophil (Absolute #) 0.04 x10^3/uL (0.01-0.08); Eosinophil (Absolute #) 0.21 x10^3/uL (0.04-0.36); Hematocrit 36.0 % (34.1-44.9); Hemoglobin 12.1 g/dL (11.2-15.7); IMMATURE GRAN # 0.04 x10^3u/L (0.001-0.031); IMMATURE GRAN % 0.3 % (0.001-0.429); Lymphocyte (Absolute #) 1.20 x10^3/uL (1.18-3.74); Mean Corpuscular Hemoglobin 30.6 pg (25.6-32.2); Mean Corpuscular Hgb Concent. 33.6 g/dL (32.2-35.5); Monocyte (Absolute #) 0.76 x10^3/uL (0.24-0.86); NUCLEATED RBC # 0.00 x10^3u/L (0.00-0.012); NUCLEATED RBC % 0.0 % (0.00-0.2); Platelet Count 162 x10^3/uL (182-369); Red Blood Count 3.95 x10^6/uL (3.93-5.22); White Blood Count 12.0 x10^3/uL (3.98-10.04)
[2025-03-15 21:49] LABS: Carbon Dioxide 14.0 mmol/L (22-30)
[2025-03-15 22:20] LABS: INFLUENZA A NEGATIVE (NEGATIVE); INFLUENZA B NEGATIVE (NEGATIVE); RESPIRATORY SYNCTIAL VIRUS NEGATIVE (NEGATIVE); SARS-CoV-2 Xpert Express NEGATIVE (NEGATIVE)
[2025-03-15] MEDS ORDERED: Reglan 10 MG/2 ML ONE (22:53)
[2025-03-15] MEDS: Reglan 10 MG/2 ML IV ONE (22:54)
[2025-03-15] MEDS ORDERED: Dextrose 5%-Lr IV Solution 1000 ML 1,000 ML IV ONE (23:02)
[2025-03-15] MEDS: Dextrose 5%-Lr IV Solution 1000 ML 1,000 ML IV SCH (23:03)
[2025-03-15 23:09] VITALS: BP 105/62; PULSE 74; RESP 18
[2025-03-15 23:40] VITALS: O2SAT 98
--- NOTE | 2025-03-16 09:00 | XRAY ---
Indication: Cough. Comparison: None Portable chest demonstrates normal heart, lungs, and bony thorax.
== END 2025-03-15 23:46 | disposition home or self-care (01) ==
LOC: ED 19:09
DX: O21.1 Hyperemesis gravidarum with metabolic disturbance (principal); Z3A.25 25 weeks gestation of pregnancy; E86.0 Dehydration; D72.829 Elevated white blood cell count, unspecified; R05.1 Acute cough; M79.10 Myalgia, unspecified site; Z79.899 Other long term (current) drug therapy; Z72.0 Tobacco use